=== PATIENT | male | born 1960 | race Caucasian/White ===

== ENCOUNTER 2024-01-23 17:33 | Inpatient (IN) ==
[2024-01-23] MEDS ORDERED: IOPAMIDOL 100 ML BOTTLE IV ONE (17:34)
[2024-01-23] MEDS: 0.9 % SODIUM CHLORIDE 1,000 ML IV ONE ×2 (18:19→21:41)
[2024-01-23 18:33] LABS: Basophils # (Auto) 0 K/mcL (0.00-0.30); Basophils % (Auto) 0 % (0.0-2.0); Eosinophils # (Auto) 0 K/mcL (0.00-0.70); Eosinophils % (Auto) 0 % (0.0-7.0); Hematocrit 46.5 % (40.1-51.0); Hemoglobin 15.5 g/dL (13.7-17.5); Lymphocytes # (Auto) 0.64 K/mcL (1.50-4.80); Lymphocytes % (Auto) 4.4 % (15.5-49.0); Mean Cell Volume 90.6 fL (80.0-100.0); Mean Corpuscular HGB Conc 33.3 g/dL (31.0-36.0); Mean Platelet Volume 8.8 fL (8.8-12.5); Monocytes % (Auto) 6.1 % (1.0-12.0); Platelet Count 238 K/mcL (140-440); RBC 5.13 M/mcL (4.63-6.08); Red Cell Distribution Width 13.7 % (11.5-14.5); WBC 14.7 K/mcL (4.5-11.0)
[2024-01-23 19:11] LABS: Blood Urea Nitrogen 46 mg/dL (8-23); Calcium 9.9 mg/dL (8.6-10.4); Carbon Dioxide 18 mmol/L (22-30); Chloride 96 mmol/L (96-108); Glomerular Filtration Rate 31; Glucose 354 mg/dL (70-105); Potassium 6.2 mmol/L (3.3-5.1); Sodium 129 mmol/L (133-145)
[2024-01-23] MEDS: IPRATROPIUM/ALBUTEROL 3 ML AMPUL.NEB NEB ONE (19:36)
[2024-01-23] MEDS: methylPREDNISolone SOD SUCC 125 MG/2 ML VIAL IV ONE (19:54)
[2024-01-23] MEDS: cefTRIAXone 1 GM VIAL IV ONE (19:54)
[2024-01-23] MEDS: AZITHROMYCIN 500 MG in DEXTROSE 5% IN WATER 250 ML IV SCH (19:55)
[2024-01-23 20:15] LABS: Blood Urea Nitrogen 44 mg/dL (8-23); Calcium 8.9 mg/dL (8.6-10.4); Carbon Dioxide 15 mmol/L (22-30); Chloride 102 mmol/L (96-108); Glomerular Filtration Rate 35; Glucose 305 mg/dL (70-105); Potassium 6.3 mmol/L (3.3-5.1); Sodium 129 mmol/L (133-145)
[2024-01-23] MEDS: INSULIN REGULAR, HUMAN 1 UNIT/0.01 ML UNIT IV ONE (20:32)
[2024-01-23] MEDS: FUROSEMIDE 20 MG/2 ML VIAL IV ONE (20:33)
[2024-01-23] MEDS: ONDANSETRON 4 MG/2 ML VIAL ONE (20:44)
[2024-01-23] MEDS: ONDANSETRON 4 MG/2 ML VIAL IV ONE (20:44)
[2024-01-23] MEDS: ALBUTEROL SULFATE 2.5 MG/3 ML NEBULIZER NEB ONE (20:46)
[2024-01-23] MEDS: VANCOMYCIN 1,000 MG in 0.9 % SODIUM CHLORIDE 250 ML IV ONE (22:18)
[2024-01-23] MEDS: PIPERACILLIN SODIUM/TAZOBACTAM 3.375 GM in DEXTROSE 5% IN WATER 100 ML IV SCH (23:40)
[2024-01-24] MEDS ORDERED: POTASSIUM CHLORIDE 40 MEQ in DEXTROSE 5% IN WATER 500 ML IV PRN (02:15)
[2024-01-24] MEDS ORDERED: DEXTROSE 31 GM ORAL.SUSP PO PRN (02:15)
[2024-01-24] MEDS ORDERED: ONDANSETRON 4 MG/2 ML VIAL IV PRN (02:15)
[2024-01-24] MEDS ORDERED: DEXTROSE 50% 50 ML VIAL IV PRN (02:15)
[2024-01-24] MEDS ORDERED: METOCLOPRAMIDE 10 MG/2 ML VIAL IV PRN (02:15)
[2024-01-24] MEDS ORDERED: ACETAMINOPHEN 160 MG/5 ML ORAL.SOL PO PRN (02:15)
[2024-01-24] MEDS ORDERED: VANCOMYCIN PER PHARMACY IV SCH (02:15)
[2024-01-24] MEDS ORDERED: MAGNESIUM SULFATE 2 GM/50 ML BAG IV PRN (02:15)
[2024-01-24] MEDS ORDERED: SENNOSIDES 1 TABLET PO PRN (02:15)
[2024-01-24] MEDS ORDERED: POTASSIUM CHLORIDE 20 MEQ TABLET PO PRN ×2 (02:15)
[2024-01-24] MEDS ORDERED: POLYETHYLENE GLYCOL 3350 17 GM PACKET PO PRN (02:15)
[2024-01-24] MEDS ORDERED: PROCHLORPERAZINE 10 MG/2 ML VIAL IV PRN (02:15)
[2024-01-24 02:49] LABS: C-Reactive Protein 14.5 mg/dL (0.03-0.80)
[2024-01-24] MEDS: SODIUM POLYSTYRENE SULFONATE 15 GM/60 ML SUSPENSION PO ONE (02:50)
[2024-01-24 03:03] LABS: Hemoglobin A1C 8.3 % Hgb (4.0-6.0)
[2024-01-24] MEDS: INSULIN LISPRO 1 UNIT/0.01 ML UNIT SQ SCH (03:15)
[2024-01-24] MEDS: INSULIN LISPRO 1 UNIT/0.01 ML UNIT SQ ONE ×2 (03:17→05:30)
[2024-01-24] MEDS: SODIUM POLYSTYRENE SULFONATE 15 GM/60 ML SUSPENSION ONE (03:17)
[2024-01-24] MEDS: AZITHROMYCIN 500 MG in DEXTROSE 5% IN WATER 250 ML IV SCH ×2 (03:21→10:48)
[2024-01-24] MEDS: PANTOPRAZOLE 40 MG TABLET PO SCH (03:22)
[2024-01-24] MEDS: IPRATROPIUM/ALBUTEROL 3 ML AMPUL.NEB NEB SCH (03:28)
[2024-01-24] MEDS: PANTOPRAZOLE 40 MG VIAL IV ONE (03:35)
[2024-01-24] MEDS: IPRATROPIUM/ALBUTEROL 3 ML AMPUL.NEB NEB ONE (03:38)
[2024-01-24] MEDS: SODIUM BICARBONATE 50 MEQ/50 ML VIAL IV ONE ×2 (04:27→07:45)
[2024-01-24 06:47] LABS: ALT/SGPT 5 U/L (<40); AST/SGOT 14 U/L (<40); Albumin 2.8 gm/dL (3.2-5.2); Albumin/Globulin Ratio 0.7 (1.0-2.3); Alkaline Phosphatase 128 U/L (39-117); Bilirubin,Direct < 0.2 mg/dL (0-0.3); Bilirubin,Total 0.3 mg/dL (0.1-1.0); Blood Urea Nitrogen 43 mg/dL (8-23); Calcium 9.1 mg/dL (8.6-10.4); Carbon Dioxide 15 mmol/L (22-30); Chloride 99 mmol/L (96-108); Globulin 3.9 gm/dL (2.2-3.7); Glomerular Filtration Rate 35; Glucose 358 mg/dL (70-105); Lactate Dehydrogenase 270 U/L (135-225); Phosphorous 3.2 mg/dL (2.5-4.5); Potassium 5.4 mmol/L (3.3-5.1); Sodium 129 mmol/L (133-145); Triglycerides 112 mg/dL (<150); Uric Acid 6.6 mg/dL (2.5-8.0)
[2024-01-24 06:58] LABS: Hematocrit 42.1 % (40.1-51.0); Hemoglobin 13.8 g/dL (13.7-17.5); Mean Cell Volume 93.3 fL (80.0-100.0); Mean Corpuscular HGB Conc 32.8 g/dL (31.0-36.0); Mean Platelet Volume 8.9 fL (8.8-12.5); Platelet Count 174 K/mcL (140-440); RBC 4.51 M/mcL (4.63-6.08); Red Cell Distribution Width 13.8 % (11.5-14.5); WBC 14.8 K/mcL (4.5-11.0)
[2024-01-24 07:05] LABS: Lymphocytes % 1 % (15-49); Monocytes % (Manual) 4 % (1-12); Platelet Estimate NORMAL (Normal); RBC Morphology NORMAL (Normal); Segmented Neutrophils % 95 % (38-78)
[2024-01-24] MEDS: BUDESONIDE 0.5 MG/2 ML AMPUL.NEB NEB SCH (07:10)
[2024-01-24] MEDS: SODIUM BICARBONATE 650 MG TABLET PO SCH (08:08)
[2024-01-24] MEDS: DOCUSATE SODIUM 100 MG CAPSULE PO SCH (08:08)
[2024-01-24 08:53] LABS: Appearance,Urine CLEAR (Clear); Bilirubin,Urine Negative (Negative); Color,Urine YELLOW; Glucose,Urine (UA) >=500 mg/dL (Negative); Ketones,Urine Negative (Negative); Leukocyte Esterase,Urine Negative /uL (Negative); Mucus,Urine FEW /hpf; Nitrate,Urine Negative (Negative); Protein,Urine >=500 mg/dL (Negative); Specific Gravity,Urine 1.024 (1.000-1.035); Urine Blood Negative (Negative); Urine RBC 3 /hpf (0-3); Urine Squamous Epithelial Cell 0 /hpf (0-4); Urine WBC 0 /hpf (0-4); Urobilinogen,Urine Negative
[2024-01-24] MEDS: SODIUM BICARBONATE VIAL 50 MEQ in DEXTROSE 5% IN WATER 100 ML IV ONE (09:06)
[2024-01-24] MEDS: PIPERACILLIN SODIUM/TAZOBACTAM 3.375 GM in DEXTROSE 5% IN WATER 50 ML IV ONE (10:48)
[2024-01-24] MEDS: NICOTINE 21 MG PATCH TOPICAL SCH (10:52)
[2024-01-24] MEDS: ENOXAPARIN 40 MG/0.4 ML SYRINGE SQ SCH (10:54)
[2024-01-24] MEDS: METHADONE 10 MG/ML PO SCH (11:32)
[2024-01-24] MEDS ORDERED: LIDOCAINE 1% 10 ML VIAL SQ ONE (13:05)
[2024-01-24] MEDS ORDERED: SODIUM CHLORIDE IRRIG SOLUTION 250 ML BOTTLE IRR ONE (13:05)
[2024-01-24] MEDS: PIPERACILLIN SODIUM/TAZOBACTAM 3.375 GM in DEXTROSE 5% IN WATER 100 ML IV SCH (13:54)
[2024-01-24 17:26] LABS: Vancomycin,Random 9.8 ug/mL
[2024-01-24] MEDS: ACETYLCYSTEINE 800 MG/4 ML VIAL INH SCH (19:14)
[2024-01-24] MEDS: IPRATROPIUM/ALBUTEROL 3 ML AMPUL.NEB NEB PRN (19:15)
[2024-01-24] MEDS: ACETYLCYSTEINE 800 MG/4 ML VIAL ONE (19:21)
[2024-01-24] MEDS: RIFAMPIN 150 MG CAPSULE PO SCH (20:27)
[2024-01-24] MEDS: 0.9 % SODIUM CHLORIDE 10 ML SYRINGE IV SCH (21:00)
[2024-01-24] MEDS ORDERED: NON FORMULARY MEDICATION 1 DOSE MISCELL PO SCH (21:00)
[2024-01-24] MEDS: INSULIN GLARGINE, HUMAN 1 UNIT/0.01 ML SQ SCH (21:58)
[2024-01-24] MEDS: 0.9 % SODIUM CHLORIDE 10 ML SYRINGE IV PRN (22:00)
[2024-01-24] MEDS: Tiotropium-Olodaterol [Stiolto Respimat] 2.5-2.5 mcg Inhaler INH SCH (22:40)
[2024-01-25 06:43] LABS: Basophils # (Auto) 0 K/mcL (0.00-0.30); Basophils % (Auto) 0 % (0.0-2.0); Eosinophils # (Auto) 0.17 K/mcL (0.00-0.70); Eosinophils % (Auto) 1.2 % (0.0-7.0); Hematocrit 37.5 % (40.1-51.0); Hemoglobin 12.7 g/dL (13.7-17.5); Lymphocytes # (Auto) 2.07 K/mcL (1.50-4.80); Lymphocytes % (Auto) 14.7 % (15.5-49.0); Mean Cell Volume 90.6 fL (80.0-100.0); Mean Corpuscular HGB Conc 33.9 g/dL (31.0-36.0); Mean Platelet Volume 9.1 fL (8.8-12.5); Monocytes # (Auto) 1.47 K/mcL (0.10-0.90); Monocytes % (Auto) 10.4 % (1.0-12.0); Neutrophils % (Auto) 73.3 % (38.0-78.0); Platelet Count 204 K/mcL (140-440); RBC 4.14 M/mcL (4.63-6.08); Red Cell Distribution Width 13.8 % (11.5-14.5); WBC 14.1 K/mcL (4.5-11.0)
[2024-01-25 07:07] LABS: ALT/SGPT < 5 U/L (<40); AST/SGOT 18 U/L (<40); Albumin 2.5 gm/dL (3.2-5.2); Albumin/Globulin Ratio 0.7 (1.0-2.3); Alkaline Phosphatase 105 U/L (39-117); Bilirubin,Direct < 0.2 mg/dL (0-0.3); Bilirubin,Total 0.2 mg/dL (0.1-1.0); Blood Urea Nitrogen 44 mg/dL (8-23); C-Reactive Protein 7.53 mg/dL (0.03-0.80); Carbon Dioxide 22 mmol/L (22-30); Chloride 101 mmol/L (96-108); Globulin 3.4 gm/dL (2.2-3.7); Glomerular Filtration Rate 33; Glucose 87 mg/dL (70-105); Lactate Dehydrogenase 254 U/L (135-225); Phosphorous 2.8 mg/dL (2.5-4.5); Potassium 4.8 mmol/L (3.3-5.1); Sodium 135 mmol/L (133-145); Triglycerides 131 mg/dL (<150); Uric Acid 5.6 mg/dL (2.5-8.0)
[2024-01-25] MEDS ORDERED: hydrALAZINE 20 MG/ML VIAL IV PRN (07:33)
[2024-01-25] MEDS: 0.9 % SODIUM CHLORIDE 1,000 ML IV ONE (09:06)
[2024-01-25] MEDS: PYRAZINAMIDE 500 MG PO SCH (09:21)
[2024-01-25] MEDS: PYRIDOXINE 100 MG TABLET PO SCH (10:09)
[2024-01-25] MEDS: ISONIAZID 300 MG TABLET PO SCH (11:16)
[2024-01-25] MEDS: ETHAMBUTOL HCL 400 MG TABLET PO SCH (11:16)
[2024-01-25] MEDS: VORICONAZOLE 200 MG PO SCH (11:17)
[2024-01-25] MEDS: INSULIN LISPRO 1 UNIT/0.01 ML UNIT SQ SCH (11:38)
[2024-01-26 06:41] LABS: ALT/SGPT < 5 U/L (<40); AST/SGOT 18 U/L (<40); Albumin 2.5 gm/dL (3.2-5.2); Albumin/Globulin Ratio 0.7 (1.0-2.3); Alkaline Phosphatase 109 U/L (39-117); Bilirubin,Direct 0.2 mg/dL (<0.3); Bilirubin,Total 0.4 mg/dL (0.1-1.0); Blood Urea Nitrogen 38 mg/dL (8-23); Calcium 8.9 mg/dL (8.6-10.4); Carbon Dioxide 22 mmol/L (22-30); Chloride 101 mmol/L (96-108); Globulin 3.5 gm/dL (2.2-3.7); Glomerular Filtration Rate 35; Glucose 65 mg/dL (70-105); Lactate Dehydrogenase 267 U/L (135-225); Phosphorous 3.1 mg/dL (2.5-4.5); Potassium 4.1 mmol/L (3.3-5.1); Sodium 134 mmol/L (133-145); Triglycerides 155 mg/dL (<150); Uric Acid 4.3 mg/dL (2.5-8.0)
[2024-01-26 06:43] LABS: Basophils # (Auto) 0 K/mcL (0.00-0.30); Basophils % (Auto) 0 % (0.0-2.0); Eosinophils # (Auto) 0.34 K/mcL (0.00-0.70); Hematocrit 38.7 % (40.1-51.0); Hemoglobin 12.9 g/dL (13.7-17.5); Lymphocytes # (Auto) 1.44 K/mcL (1.50-4.80); Lymphocytes % (Auto) 12.5 % (15.5-49.0); Mean Cell Volume 90.6 fL (80.0-100.0); Mean Corpuscular HGB Conc 33.3 g/dL (31.0-36.0); Mean Platelet Volume 9.1 fL (8.8-12.5); Monocytes # (Auto) 1.49 K/mcL (0.10-0.90); Neutrophils % (Auto) 71.2 % (38.0-78.0); Platelet Count 190 K/mcL (140-440); RBC 4.27 M/mcL (4.63-6.08); Red Cell Distribution Width 13.8 % (11.5-14.5); WBC 11.5 K/mcL (4.5-11.0)
[2024-01-26] MEDS: amLODIPine 5 MG TABLET PO SCH (08:35)
[2024-01-26 13:12] LABS: NIL 0.02 IU/mL; Quant TB Gold + 4T Incubated Negative (Negative); TB1-NIL 0.16 IU/mL; TB2-NIL 0.12 IU/mL
[2024-01-26] MEDS: INSULIN GLARGINE, HUMAN 1 UNIT/0.01 ML SQ SCH (20:31)
[2024-01-27 06:43] LABS: Basophils # (Auto) 0.01 K/mcL (0.00-0.30); Basophils % (Auto) 0.1 % (0.0-2.0); Eosinophils # (Auto) 0.54 K/mcL (0.00-0.70); Eosinophils % (Auto) 4.9 % (0.0-7.0); Hematocrit 39.6 % (40.1-51.0); Hemoglobin 13.1 g/dL (13.7-17.5); Lymphocytes # (Auto) 1.38 K/mcL (1.50-4.80); Lymphocytes % (Auto) 12.6 % (15.5-49.0); Mean Cell Volume 90.4 fL (80.0-100.0); Mean Corpuscular HGB Conc 33.1 g/dL (31.0-36.0); Mean Platelet Volume 8.8 fL (8.8-12.5); Monocytes # (Auto) 1.36 K/mcL (0.10-0.90); Monocytes % (Auto) 12.4 % (1.0-12.0); Neutrophils % (Auto) 69.6 % (38.0-78.0); Platelet Count 185 K/mcL (140-440); RBC 4.38 M/mcL (4.63-6.08); Red Cell Distribution Width 13.4 % (11.5-14.5)
[2024-01-27 07:19] LABS: ALT/SGPT < 5 U/L (<40); AST/SGOT 18 U/L (<40); Albumin 2.5 gm/dL (3.2-5.2); Albumin/Globulin Ratio 0.7 (1.0-2.3); Alkaline Phosphatase 111 U/L (39-117); Bilirubin,Direct 0.2 mg/dL (<0.3); Bilirubin,Total 0.4 mg/dL (0.1-1.0); Blood Urea Nitrogen 35 mg/dL (8-23); Calcium 9.2 mg/dL (8.6-10.4); Carbon Dioxide 21 mmol/L (22-30); Chloride 102 mmol/L (96-108); Globulin 3.7 gm/dL (2.2-3.7); Glomerular Filtration Rate 37; Glucose 121 mg/dL (70-105); Lactate Dehydrogenase 261 U/L (135-225); Phosphorous 3.2 mg/dL (2.5-4.5); Potassium 4.2 mmol/L (3.3-5.1); Sodium 134 mmol/L (133-145); Triglycerides 166 mg/dL (<150); Uric Acid 4.1 mg/dL (2.5-8.0)
[2024-01-27] MEDS: LEVOFLOXACIN 750 MG TABLET PO ONE (10:27)
[2024-01-27 15:21] LABS: Fungitell (1-3) Assay 179 pg/mL
== END 2024-01-27 11:18 | disposition home or self-care (01) | DRG 871 ==
LOC: ED 17:33 → ICU 01-24 02:11
PROVIDERS: ADMIT Internal Medicine; ATTEND Internal Medicine